=== PATIENT | male | born 1980 | race Caucasian/White ===

== ENCOUNTER 2017-04-05 19:56 | Emergency (ER) | payer OTHER ==
[2017-04-05] MEDS ORDERED: CEPHALEXIN 500 MG CAPSULE PO ONE (20:08)
--- NOTE | 2017-04-05 20:13 | PDOC ---
Skin Rash/Insect/Abscess HPI - General Chief Complaint: Laceration / Wound Stated Complaint: LACERATION TO 5TH DIGIT OF RIGHT HAND Date Seen by Provider: 04/05/17 Time Seen by Provider: 20:09 Source: POSITIVE: Patient, Spouse Exam Limitations: POSITIVE: No limitations Nurse's Notes Reviewed & Considered: Yes - History of Present Illness Initial Comments: This very pleasant 36-year-old male comes in today with chief complaint of laceration to his right fifth finger on the proximal interphalangeal joint. Patient was cutting chicken and his hand slipped on the knife resulting in laceration on the palmar space of the PIP joint, right fifth finger. He has distal numbness, and inability to flex his DIP joint. Wound he attempts to flex the DIP joint he has pain in the palmar space of his right hand. He has good capillary refill present, and bleeding is controlled. He denies any other symptoms. Have you received a tetanus shot in the past 10 years?: Yes Body Location Affected: REPORTS: Upper Extremity (R) Timing: REPORTS: Abrupt Duration: 1-3 hours Severity: Moderate Quality: REPORTS: "Pain" Identified Causes: REPORTS: Yes When Exposed: REPORTS: Just Prior to Sx Onset Where Exposed: REPORTS: Home Suspected Etiology: REPORTS: Other (Laceration on kitchen knife.) Similar Symptoms Previously: No Recent Care Received: REPORTS: Denies Any Prior Injuries Related to Current Complaint?: No - Patient Home Medications Home Medications: Home Medications Montelukast Sodium [Singulair] 10 mg PO DAILY #30 tab 04/11/14 - Patient Allergies Allergies/Adverse Reactions: Allergies Allergy/AdvReac Type Severity Reaction Status Date / Time No Known Allergies Allergy Unverified 08/07/15 15:59 Past Medical History - heen HEENT History: Denies History Cardiovascular History: Denies History Respiratory History: Denies History Gastrointestinal History: Denies History Genitourinary History: Denies History Endocrine History: Denies History Musculoskeletal History: Arthritis Neurological History: Denies History Blood Disorders: Denies History Psychiatric History: Denies History History of Sexually Transmitted Diseases: No Cancer History: Denies History History of MDRO: No History of Other Communicable Diseases: No Alcohol Use: Rarely Substance Use Type: None Previous Surgical History: No Significant Family History: Heart disease, Diabetes ROS Constitution: REPORTS: Denies Symptoms Cardiovascular: REPORTS: Denies Cardiac Symptoms Respiratory: REPORTS: Denies Resp Symptoms Neurological: REPORTS: Denies Neuro Symptoms Gastrointestinal: REPORTS: Denies GI Symptoms Endocrine: REPORTS: Denies Symptoms Musculoskeletal: REPORTS: Joint Pain, Other (Inability to flex the right DIP joint fifth finger) Genitourinary: REPORTS: Denies Symptoms Eyes: REPORTS: Denies Symptoms ENT: REPORTS: Denies Symptoms Skin: REPORTS: Other (1 cm laceration PIP joint right fifth finger) Lympathic: REPORTS: Denies Lympathic Symptoms Immunologic: POSITIVE: Denies Symptoms Psychiatric: POSITIVE: Denies Psych Symptoms Skin Rash/Insect/Abscess Exam - General Appearance General Appearance: REPORTS: Alert, Cooperative, No Acute Distress - Skin Skin: REPORTS: Warm, Dry, Normal Color, Other (Laceration palmar space right fifth finger PIP joint. It measures 1 cm.) - Extremities Extremity: Non-Tender: (All Extremities), Normal ROM: (LLE), (LUE), (RLE), Normal Inspection: (LUE), (RLE), (LLE), Normal Tendon Exam: (LUE), (RLE), (LLE) Additional Extremities Details: Inability to flex the DIP joint fifth finger of the right hand. - HEENT HEENT: POSITIVE: Head Inspection Nml, Eyes Inspection Nml, Ears Inspection Nml, Nose Inspection Nml, Oral/Dental Inspect. Nml, Pharynx Inspect. Nml, PERRL, EOMI - Respiratory Respiratory: REPORTS: No Respiratory Distress - Neurological / Psychological Neurological: REPORTS: Affect Apporpriate, Oriented X3 Procedures - Laceration/Wound Repair Site of Laceration/Wound: Right fifth finger PIP joint. Wound Length (cm): 1.5 Wound's Depth, Shape: Into subcutaneous tissue, Linear Time of Suture Placement:: 21:47 Skin Prep: Betadine Prep Local Anesthesia Used - Indicate Amt Used in Comment: Lidocaine 2% with Epinephrine: Yes Wound Explored: No foreign body removed Wound Debrided: Minimal Wound Repaired With: Sutures multilayer Suture Size/Type: 5:0, 4:0, Prolene, Vicryl Number of Sutures: 3 Deep Layer Suture Size/Type: 5:0 Number Deep Layer Sutures: 2 Drain Placement: No Sterile Dressing Applied?: Yes Splint Applied?: Yes Sling Applied?: No Procedure Note:: After obtaining informed verbal consent, patient had his hand soaked in a Betadine tea. 2% Xylocaine was utilized to induce an anesthetic field. A ring block was technique utilized. This resulted in excellent anesthesia. Wound was explored a small arterial bleed was discovered and ligated with 5-0 Vicryl. Deep venous bleeding was noted to be present. Wound was closed with 3 4-0 Prolene's with good skin edge reapproximation. Patient had her wound dressed with bacitracin and sterile nonstick dressing a splint was applied. He tolerated this well. Skin Rash/Abscess Progress - Patient's Progress Re-Examine Time:: 21:44 Status: POSITIVE: Improved MDM / ED Course: Patient was examined. His hand was soaked in Betadine tea. After verbal informed consent, his finger was anesthetized using 2% Xylocaine which was injected into the base of the fifth right finger into a ring block. After allowing adequate time for anesthesia field to mature the wound was explored and a small arterial bleed was noted this was suture ligated. A 5-0 Vicryl was utilized to ligate bleeder. There continued to be venous bleeding from deeper. Using 4-0 Prolene 3 interrupted sutures were placed with good skin edge reapproximation. Wound was dressed with sterile dressing and bacitracin ointment, and a finger splint was applied. I was able to contact Dr. Meagan Patricia in the on-call orthopedic surgeon who is advising hand surgeon follow- up. I then contacted Dr. Norman patton with chest orthopedics who will be arranging for Mr. Payne to be seen by the hand specialist in [place] on Friday. Assessment: Probable laceration PIP joint fourth right finger with tendon laceration and possible nerve damage. Plan: Discharge home with instructions for wound care. A prescription for Keflex was provided. Follow-up with [place] [facility] Friday morning. - Consult Counseled: POSITIVE: Patient, Family, RE: DX, RE: Need for F/U Patient Care Time - Estimated PCT Patient Care Time (In Minutes): 45 Vital Signs - VS Reviewed Vital Signs Reviewed: Yes Discharge Clinical Impression: Laceration - injury Discharge Disposition: Discharged to Home Condition: Stable Patient Instructions Given at Discharge: Laceration (ED)
[2017-04-05] MEDS ORDERED: LIDOCAINE 2% 20 MG/ML - 20 ML VIAL SUBCUT ONE (20:48)
[2017-04-05] MEDS ORDERED: LIDOCAINE 2% 20 MG/ML - 20 ML VIAL ONE (20:48)
[2017-04-05] MEDS ORDERED: BACITRACIN 0.9 GM PACKET OINT TOPICAL ONE (21:22)
[2017-04-05] MEDS ORDERED: HYDROcodone-APAP 5 MG -325 MG TABLET PO SCH (22:00)
[2017-04-06 04:04] VITALS: RESP 18; TEMP 97.4
== END 2017-04-05 22:12 | disposition home or self-care (01) ==
LOC: ER 19:56
DX: S61.216A Laceration without foreign body of right little finger without damage to nail, initial encounter (principal); W26.0XXA Contact with knife, initial encounter
CPT/HCPCS: 12001; 99282; J2001